=== PATIENT | female | born 1980 | race Caucasian/White ===

== ENCOUNTER 2021-05-19 14:10 | Emergency (ER) | payer MEDICAID, SELFPAY ==
[2021-05-19 14:27] VITALS: BP 122/63; PULSE 104; RESP 18; TEMP 36.8; O2SAT 99; BMI 21.9
--- NOTE | 2021-05-19 15:11 | W.ED.SKABFB ---
HPI - Skin/Abscess/Foreign Bdy General: Chief complaint: Skin/Abscess/Foreign Body Stated complaint: JOINT PAIN/SPREADING BLISTERS Time Seen by Provider: 05/19/21 15:09 History of Present Illness: MD complaint: rash PFSH ED PFSH: Medical History Shingles Social History Smoking and tobacco status: never smoked Female Reproductive History: Date of last menstrual period: 04/20/21 Course Vital Signs: Vital signs: Vital Signs Temperature 98.2 F 05/19/21 14:27 Pulse Rate 104 H 05/19/21 14:27 Respiratory Rate 18 05/19/21 14:27 Blood Pressure 122/63 05/19/21 14:27 Pulse Oximetry 99 05/19/21 14:27 Discharge Plan Discharge Patient Disposition: Home Clinical Impression: Vasculitis Condition: Stable Prescriptions: No Action acetaminophen-codeine 300-30 mg tablet 1 tab PO Q4H PRN (Reason: pain) Qty: 24 RF: 0 doxycycline hyclate 100 mg tablet 100 mg PO BID 7 Days Qty: 14 RF: 0 gabapentin 100 mg capsule 100 mg PO TID 10 Days Qty: 30 RF: 0 valacyclovir 1 gram tablet 1,000 mg PO Q8H 10 Days Qty: 30 RF: 0 Discharge Orders: Discharge ED (Routine); Ordered 05/19/21 Ordered By: Mani Ferrer Referrals: Denisa Ricks MD [Primary Care Provider] - Patient Instructions: Opioid Safety Activity Restrictions/Additional Instructions: Proceed directly to Dr. Griffith's office and she will see you in her office this afternoon. Coding Level of Care Code ED Technical Training Instructor for Amparo Cunningham
[2021-05-19 15:30] VITALS: RESP 18; TEMP 36.8; O2SAT 99
== END 2021-05-19 15:30 | disposition home or self-care (01) ==
PROVIDERS: Emergency Provider Family Medicine; PCP Family Medicine
DX: I77.6 Arteritis, unspecified (principal)
CPT/HCPCS: 87070; 99281

== ENCOUNTER → 2021-05-27 16:36 | Outpatient (BNVA) | payer MEDICAID, SELFPAY | PROVIDERS: PCP Family Medicine; Visit Provider Dermatology | DX: R21 Rash and other nonspecific skin eruption (principal); M25.50 Pain in unspecified joint | CPT/HCPCS: 80053; 85025; 86160; 86162; 86235; 86255; 86376; 86705; 86706; 86709; 86803; 87340; 87806 ==

== ENCOUNTER → 2021-07-01 08:37 | Outpatient (BNVA) | payer MEDICAID, SELFPAY | PROVIDERS: PCP Family Medicine; Visit Provider Internal Medicine | DX: R76.8 Other specified abnormal immunological findings in serum (principal); M25.50 Pain in unspecified joint; D75.839 Thrombocytosis, unspecified; Z79.899 Other long term (current) drug therapy; Z79.1 Long term (current) use of non-steroidal anti-inflammatories (NSAID) | CPT/HCPCS: 36415; 99204 ==

== ENCOUNTER 2021-07-01 10:57 | Outpatient (CLI) | payer MEDICAID, SELFPAY ==
--- NOTE | 2021-07-01 11:18 | XR_ITS ---
WS: [id number] TECHNIQUE: 2 views of the right hand CLINICAL INFORMATION: R21 - Rash and other nonspecific skin eruption COMPARISON: None. FINDINGS: Normal metacarpals. Normal MCP joint. Metacarpal heads are normal in appearance. Normal PIP and DIP j oints. No evidence of acute fracture or dislocation. Radiocarpal joint: Normal. Carpal bones: Normal. XR/XR hand RT 2V [id number] IMPRESSION: Normal right hand.
--- NOTE | 2021-07-01 11:18 | XR_ITS ---
WS: [id number] SI JOINTS TECHNIQUE: 3 views of the sacroiliac joints CLINICAL INFORMATION: R21 - Rash and other nonspecific skin eruption COMPARISON: None. FINDINGS: Mild arthritis both sacroiliac joints with small amount of periarticular sclerosis. No significant er osive changes. A few pelvic phleboliths. Normal lower lumbar spine. Normal visualized pubic rami. XR/XR sacroiliac jts m 3V [id number] IMPRESSION: Mild degenerative arthritis sacroiliac joints with small amount of periarticula r sclerosis. No significant erosive changes or ankylosis.
--- NOTE | 2021-07-01 11:18 | XR_ITS ---
WS: [id number] TECHNIQUE: 2 views of the left hand CLINICAL INFORMATION: R21 - Rash and other nonspecific skin eruption COMPARISON: None. FINDINGS: Normal metacarpals. Normal MCP joint. Metacarpal heads are normal in appearance. Normal PIP and DIP j oints. No evidence of acute fracture or dislocation. Radiocarpal joint: Normal. Carpal bones: Normal. XR/XR hand LT 2V [id number] IMPRESSION: Normal left hand.
== END 2021-07-01 10:58 | disposition home or self-care (01) ==
PROVIDERS: PCP Family Medicine; Visit Provider Internal Medicine
DX: D75.839 Thrombocytosis, unspecified (principal); M25.50 Pain in unspecified joint; R21 Rash and other nonspecific skin eruption; R76.8 Other specified abnormal immunological findings in serum
CPT/HCPCS: 72202; 73120; 82550; 82728; 83540; 84443; 85025; 85651; 86617; 86618; 86666; 86757

== ENCOUNTER → 2021-07-31 08:38 | Outpatient (BNVA) | payer MEDICAID, SELFPAY | PROVIDERS: PCP Family Medicine; Visit Provider Internal Medicine | DX: R76.8 Other specified abnormal immunological findings in serum (principal); M25.50 Pain in unspecified joint; R21 Rash and other nonspecific skin eruption; D75.839 Thrombocytosis, unspecified; M53.3 Sacrococcygeal disorders, not elsewhere classified; Z79.1 Long term (current) use of non-steroidal anti-inflammatories (NSAID) | CPT/HCPCS: 99214 ==

== ENCOUNTER → 2021-08-04 16:23 | Outpatient (BNVA) | payer MEDICAID, SELFPAY | PROVIDERS: PCP Family Medicine; Visit Provider Internal Medicine | DX: M45.0 Ankylosing spondylitis of multiple sites in spine (principal); D75.839 Thrombocytosis, unspecified; M25.50 Pain in unspecified joint; R21 Rash and other nonspecific skin eruption; R76.8 Other specified abnormal immunological findings in serum | CPT/HCPCS: 81000 ==

== ENCOUNTER → 2021-08-05 16:38 | Outpatient (BNVA) | payer MEDICAID, SELFPAY | PROVIDERS: PCP Family Medicine; Visit Provider Internal Medicine | DX: M45.0 Ankylosing spondylitis of multiple sites in spine (principal) | CPT/HCPCS: 86812 ==

== ENCOUNTER → 2021-09-04 15:28 | Outpatient (BNVA) | payer MEDICAID, SELFPAY | PROVIDERS: PCP Family Medicine; Visit Provider Internal Medicine | DX: R76.8 Other specified abnormal immunological findings in serum (principal); D75.839 Thrombocytosis, unspecified; M53.3 Sacrococcygeal disorders, not elsewhere classified | CPT/HCPCS: 99214 ==

== ENCOUNTER → 2023-12-21 17:17 | Outpatient (BNVA) | payer MEDICAID, SELFPAY | PROVIDERS: Visit Provider Nurse Practitioner Family | DX: R30.0 Dysuria (principal) | CPT/HCPCS: 81000; 87077; 87086; 87184 ==